=== PATIENT | female | born 1990 | race Two or more races ===

== ENCOUNTER → 2018-02-23 08:16 | Outpatient (CLI) | payer MEDICAID, SELFPAY ==
[2018-02-23 08:51] LABS: Basophils % 0.4 % (0.1-2.0); Eosinophils # 0.2 K/mm3 (0.0-0.4); Eosinophils % 1.7 % (0.1-12.0); Hemoglobin 14.9 g/dL (12.2-16.2); Lymphocytes # 2.7 K/mm3 (0.7-4.5); Lymphocytes % 31.9 K/mm3 (10-50); Mean Corpuscular HGB Conc 32.3 g/dL (31.8-35.4); Mean Corpuscular Hemoglobin 30.5 pg (27.0-31.2); Mean Corpuscular Volume 94.2 fl (81-99); Mean Platelet Volume 8.6 fl (7.4-10.4); Monocytes # 0.4 K/mm3 (0.1-1.0); Monocytes % 4.3 % (1.7-9.3); Neutrophils # 5.2 K/mm3 (1.8-7.8); Neutrophils % 61.7 % (37.0-80.0); Platelet Count 261 K/mm3 (142-424); Red Blood Count 4.89 M/mm3 (4.20-5.40); Red Cell Distribution Width 13.3 % (11.5-17.5); White Blood Count 8.5 K/mm3 (4.8-10.8)
--- NOTE | 2018-02-23 13:09 | US_ITS ---
US OB /maternal detail: Biophysical profile Umbilical artery Doppler evaluation INDICATION: Anatomy scan, late care ITS.REASON: Anatomy Scan-Late Transfer ORDERING PHYSICIAN: Lindsey Oviedo MD PATIENT AGE: 27 years TECHNIQUE: ultrasound transabdominal scanning. COMPARISON: No previous relevant studies. FINDINGS: Single viable intrauterine gestation. Cephalic position. Placenta: Posterior placenta grade 1. There is average amount fluid. The cervix appears satisfactory. Closed and measuring 3 cm in length. Complete survey performed and was unremarkable on the submitted images as in PACS. No discrete anomalies identified on survey imaging by technologist. Active fetus. Three-vessel cord with satisfactory umbilical cord insertion. 4- chamber heart noted. Survey of brain & ventricles unremarkable. Face and neck survey unremarkable. Diaphragm and chest views unremarkable. Abdomen: Both kidneys noted and unremarkable. Stomach noted and satisfactory. Spine: Survey of the spine satisfactory with no anomalies identified nor imaged. Both arms and legs noted. Amniotic Fluid: Adequate. Maternal adnexa: No significant findings. Measurements: Average ultrasound age 34w1d. Gestational Age 34w2d. Estimated due date by ultrasound age 804/05/2018. Estimated weight 2331 grams. This is 36 percentile based on established due date of 04/04/2018 BPD = 33w5d OFD = 37w1d HC = 34w6d AC = 34w1d FL = 33w6d Heart Rate = 142 bpm Cerebellum = Humerus = 33w5d HC/AC is 1.03 (0.96-1.11). CI is 75% (70-86%). FL/BPD is 79% (71-87%). FL/AC is 22% (20-24%). Biophysical profile is 8 of 8. Amniotic fluid index is 10 cm. SD ratio 2.7 with a resistive index of 0.63 IMPRESSION: Single live intrauterine gestation at 34 weeks 1 day. breathing and movement noted. No obvious anomalies. Biophysical profile of 8 with unremarkable Doppler of the umbilical artery. Please see above for detail
[2018-02-24 10:14] LABS: Rapid Plasma Reagin Ab Titer Non Reactive (NonRea<1:1)
[2018-02-25 08:07] LABS: HIV Screen 4th Generation wRfx Non Reactive (Non Reactive); Hepatitis B Surface Antigen Negative (Negative); Hepatitis C Antibody <0.1 s/co ratio (0.0-0.9); Rubella Antibodies, IgG 4.17 index (Immune >0.99)
== END ==
PROVIDERS: PCP Obstetrics & Gynecology; Visit Provider Obstetrics & Gynecology
DX: Z36.0 Encounter for antenatal screening for chromosomal anomalies (principal)
CPT/HCPCS: 76811; 85025; 86592; 86703; 86762; 86850; 86870; 87340; 87380; G0432

== ENCOUNTER 2018-03-23 08:14 | Inpatient (IN) ==
[2018-03-23 09:16] LABS: Basophils % 0.4 % (0.1-2.0); Eosinophils # 0.1 K/mm3 (0.0-0.4); Hematocrit 43.6 % (37.0-47.0); Hemoglobin 14.6 g/dL (12.2-16.2); Lymphocytes # 2.6 K/mm3 (0.7-4.5); Lymphocytes % 31.9 K/mm3 (10-50); Mean Corpuscular HGB Conc 33.5 g/dL (31.8-35.4); Mean Corpuscular Hemoglobin 32.1 pg (27.0-31.2); Mean Corpuscular Volume 95.7 fl (81-99); Mean Platelet Volume 8.4 fl (7.4-10.4); Monocytes # 0.4 K/mm3 (0.1-1.0); Monocytes % 4.9 % (1.7-9.3); Neutrophils % 61.8 % (37.0-80.0); Platelet Count 223 K/mm3 (142-424); Red Blood Count 4.55 M/mm3 (4.20-5.40); Red Cell Distribution Width 14.2 % (11.5-17.5); White Blood Count 8.1 K/mm3 (4.8-10.8)
--- NOTE | 2018-03-23 13:45 | History & Physical Report ---
OB - H&P: HPI Antepartum - History of Present Illness Chief complaint: Spontaneous rupture of membrane History of present illness: She is a 27-year-old 2 para 1 spontaneous rupture of membranes. She has gestational diabetes on metformin. [place] and she came from [place] where she had her care. - History of Present Criteria for establishing EDC:: based on LMP only care: limited care Obstetrical complications: gestational diabetes Medical complications: none [facility] History I have reviewed the patient's past medical history: Yes Other Surgeries: No: - *Social History Smoking Status: Never smoker Alcohol Intake: never *Family Hx:: No significant family history Para: 1 Review of Systems - Review of Systems Review of systems:: pertinent systems reviewed and negative unless documented below Meds Home Medications Medication Instructions Recorded Confirmed Type ferrous sulfate 325 mg (65 mg 325 mg PO DAILY tab 02/11/18 03/23/18 History iron) tablet metformin 850 mg tablet 850 mg PO DAILY tab 02/11/18 03/23/18 History 1 tab PO DAILY tab 02/11/18 03/23/18 History vitamin,calcium,biskqhvu-mzeo-kxzpu acid tablet Allergies Allergy/AdvReac Type Severity Reaction Status Date / Time No Known Allergies Allergy Verified 02/25/18 15:23 OB - H&P: Exam - Physical Exam Vital signs: Temp Pulse Resp BP 98.1 F 60 18 153/81 03/23/18 08:31 03/23/18 08:31 03/23/18 08:31 03/23/18 08:31 - Constitutional no acute distress - Routine HEENT Exam Head: Present: normocephalic - Routine Respiratory Exam Comments: She is not having any difficulty breathing. - Routine Abdominal Exam Present: soft Comments: Her abdomen is gravid - Routine Exam Comments: She was examined by the nurses and found to be 3 cm dilated. OB - Results - Labs Labs: Short CBC 03/23/18 Range/Units 09:00 WBC 8.1 (4.8-10.8) K/mm3 Hgb 14.6 (12.2-16.2) g/dL Hct 43.6 (37.0-47.0) % Plt Count 223 (142-424) K/mm3 OB - A/P Antepartum (1) Gestational diabetes insipidus Current visit: Yes Status: Acute (2) Language barrier affecting health care Problem details: Arabic speaking only Current visit: No Status: Acute (3) Current visit: No Status: Acute (4) with care elsewhere Problem details: [place] Current visit: No Status: Acute - Additional Plan Planning to breastfeed?: Yes Plan: expectant management Additional Information:: She had spontaneous rupture of membranes at home at 38+ weeks gestational age. She is just having occasional contraction. We will plan to observe her overnight and wait for spontaneous labor. We will go ahead and start group B streptococcus prophylaxis since I expect that she will have prolonged rupture of membranes before she actually goes into labor. If she has not delivered by tomorrow morning we will go ahead and start oxytocin in the morning.
[2018-03-23 20:40] LABS: Microscopic, Urine URINE MICROSCOPIC (MICROSCOPIC)
[2018-03-23 20:42] LABS: Appearance,Urine CLEAR (Clear); Bilirubin,Urine Negative (Negative); Blood, Urine Negative (Negative); Color,Urine YELLOW (Yellow); Glucose,Urine (UA) Negative (Negative); Ketones,Urine Negative (Negative); Leukocyte Esterase,Urine Negative (Negative); PH,Urine 6.5 (5.0-8.5); Protein,Urine Negative (Negative); Urobilinogen,Urine 0.2 EU/dl (0.2)
[2018-03-23 20:57] LABS: Amphetamine/Metha Screen,Urine Negative ng/mL (<1000); Barbiturates Screen,Urine Negative ng/mL (<200); Benzodiazepines Screen,Urine Negative ng/mL (<200); Cannabinoid Screen,Urine Negative ng/mL (<50); Cocaine Screen,Urine Negative ng/mL (<300); Methadone Screen,Urine Negative ng/mL (<300); Opiate Screen,Urine Negative ng/mL (<300); Phencyclidine Screen,Urine Negative ng/mL (<25)
[2018-03-23 21:09] LABS: Bacteria,Urine Trace /lpf
--- NOTE | 2018-03-23 22:53 | Progress Note ---
[facility] Anesthesia Checklist - Structural Data Admitted From: Inpatient Planned Operative Procedure/s: labor epidural Consent for Planned Operative Procedure(s) Verified: Yes - Airway Assessment C-Spine Mobility Assessed: Yes TMJ Mobility Assessed: Yes Dentition: Good Dentition - Neurological Assessment Level of Consciousness: Awake, Alert, Appropriate - Anesthesia Plan Anesthesia Risk discussed: Yes Anesthesia Plan: Verified ASA Class: II Anesthesia Type: Epidural [facility] Anesthesia HX I have reviewed the patient's past medical history: Yes Other Surgeries: No: *Family Hx:: No significant family history
--- NOTE | 2018-03-24 02:04 | Progress Note ---
Delivery date: 03/24/18 Procedure: Spontaneous vaginal delivery with single push, over intact perineum. No shoulder dystocia or nuchal cord noted at delivery. Vigorous liveborn male infant with apgars of 7 (1 min) and 8 (5 min); nose/mouth bulb suctioned at delivery and transferred to immediate maternal [id number]. Placenta spontaneously delivered and intact. Right vaginal sulcus tear (approximately 4cm) repaired with 2-0 vicryl in running fashion. 1st degree perineal laceration repaired with 2-0 vicryl. EBL 300cc. Mom/baby stable to recovery. All counts correct. Events: Premature Rupture of Membrane Intrapartal events: Prolonged Latent Phase Delivery augmentation: pitocin Delivery monitor: external FHT, external uterine Route of delivery: Episiotomy description: None Laceration description: Vaginal - 1st Degree (vaginal sulcus tear (right), 1st degree perineal laceration) Delivery repair: vicryl Estimated blood loss (mL): 300 Anesthesia type: Epidural Disposition: floor
[2018-03-25 07:14] LABS: Hematocrit 39.1 % (37.0-47.0); Hemoglobin 13.1 g/dL (12.2-16.2)
--- NOTE | 2018-03-25 17:37 | Progress Note ---
Internal Medicine - PN: Subj *Date: 03/25/18 *Time: 12:33 Interval history: PPD #1 No complaints Tolerating regular diet, ambulating and voiding without difficulty Lochia small Exam Vital signs and Labs for Last 24 Hours: Temp Pulse Resp BP 98.1 F 60 18 153/81 03/23/18 08:31 03/23/18 08:31 03/23/18 08:31 03/23/18 08:31 Laboratory Results - last 24 hr 03/25/18 06:30: Hgb 13.1, Hct 39.1 I & O for Last 24 hours: Intake & Output 03/23/18 03/24/18 03/25/18 03/26/18 11:59 11:59 11:59 11:59 Weight 170 lb 12.573 oz - Constitutional no acute distress - *Routine Respiratory Exam Absent: accessory muscle use, decreased breath sounds, respiratory distress - *Routine Cardiovascular Exam Present: RRR. Absent: tachycardia - *Routine Abdominal Exam Present: soft. Absent: tenderness, distended, guarding - *Routine Exam Comments: fundus firm at umbilicus - *Routine Extremities Exam Present: edema (1+). Absent: calf tenderness, tenderness - *Routine Skin Exam Present: intact, dry, warm - *Routine Neurological Exam Present: alert, oriented X3. Absent: altered mental status - Routine Psychiatric Exam Present: normal affect. Absent: depressed, anxious Assessment and Plan (1) Language barrier affecting health care Problem details: Czech speaking only Current visit: No Status: Acute Category: Social Hx Code(s): Z78.9 - Other specified health status (2) with care elsewhere Problem details: [place] Current visit: No Status: Acute Category: Medical Code(s): Z34.90 - Encounter for supervision of normal , unspecified , unspecified trimester (3) Normal vaginal delivery Current visit: Yes Status: Acute Category: Medical Code(s): O80 - Encounter for full-term uncomplicated delivery (4) with 38 completed weeks gestation Current visit: Yes Status: Acute Category: Medical Code(s): Z3A.38 - 38 weeks gestation of (5) PROM (premature rupture of membranes) Current visit: Yes Status: Acute Category: Medical Code(s): O42.90 - Premature rupture of membranes, unspecified as to length of time between rupture and onset of labor, unspecified weeks of gestation - Assessment and plan all Dx Assessment and Plan for all problems:: routine care anticipate discharge in am
--- NOTE | 2018-03-26 12:29 | Discharge Summary ---
DS: Providers Date of admission: 03/23/18 08:43 Attending physician on admission: Lindsey Oviedo Consults: 03/23/18 10:54 Consult to Case Management [CONS] Routine Comment: Late and limited care. Attending physician on discharge: Lindsey Oviedo Anticipated date of discharge: 03/26/18 DS: Diagnosis - Discharge Diagnosis (1) Language barrier affecting health care Status: Acute Problem details: [place] speaking only (2) with care elsewhere Status: Acute Problem details: [place] (3) Normal vaginal delivery Status: Acute (4) with 38 completed weeks gestation Status: Acute (5) PROM (premature rupture of membranes) Status: Acute DS: Medications - Discharge Medications Prescriptions: No Action ferrous sulfate 325 mg (65 mg iron) tablet 325 mg PO DAILY tab vitamin,calcium,vwkrycll-ltrp-cxnrm acid tablet 1 tab PO DAILY tab metformin 850 mg tablet 850 mg PO DAILY tab OB - DS: Summary Hospital course: Ms. Tolbert is a 27 year old female s/p . normal course. discharged on PPD 2 with regular diet; no Rx. Follow up 6 weeks office. - Peripartum Data Delivery method: spontaneous vaginal delivery Laceration description: Vaginal - 1st Degree - Time Spent with Patient Total time spent providing and/or coordinating discharge services: Less than 30 minutes Exam Vital signs and Labs for Last 24 Hours: Temp Pulse Resp BP 98.1 F 60 18 153/81 03/23/18 08:31 03/23/18 08:31 03/23/18 08:31 03/23/18 08:31 - Constitutional no acute distress - *Routine Respiratory Exam Absent: respiratory distress - *Routine Cardiovascular Exam Absent: tachycardia - *Routine Abdominal Exam Present: soft. Absent: tenderness, distended - *Routine Skin Exam Present: intact, dry - *Routine Neurological Exam Present: alert, oriented X3 - Routine Psychiatric Exam Present: normal affect Discharge Plan - Patient Discharge Instructions ACTIVITY: Continue current activity, No heavy lifting Patient Instructions: Post Discharge Instructions - Follow up Plan Follow up with: Lindsey Oviedo MD [Staff Physician] - Disposition: Home, Self-Correction Medications: Home Medications Medication Instructions Recorded Confirmed Type ferrous sulfate 325 mg (65 mg 325 mg PO DAILY tab 02/11/18 03/23/18 History iron) tablet metformin 850 mg tablet 850 mg PO DAILY tab 02/11/18 03/23/18 History 1 tab PO DAILY tab 02/11/18 03/23/18 History vitamin,calcium,chlisvwz-nmlz-hvtzd acid tablet Prescriptions/Medication Reconciliation: No Action ferrous sulfate 325 mg (65 mg iron) tablet 325 mg PO DAILY tab vitamin,calcium,deoqjnel-pifh-gujrn acid tablet 1 tab PO DAILY tab metformin 850 mg tablet 850 mg PO DAILY tab
== END 2018-03-26 12:55 | disposition home or self-care (01) ==
LOC: OBOUT 08:14 → OB 08:18
PROVIDERS: ADMIT Obstetrics & Gynecology; ATTEND Obstetrics & Gynecology